=== PATIENT | female | born 1990 | race Caucasian/White ===

== ENCOUNTER 2017-08-04 13:22 | Emergency (ER) | payer SELFPAY | END 2017-08-04 15:25 | disposition left against medical advice (07) | LOC: M ED 13:22 | DX: R10.9 Unspecified abdominal pain (principal); Z53.21 Procedure and treatment not carried out due to patient leaving prior to being seen by health care provider ==

== ENCOUNTER 2018-03-18 18:02 | Emergency (ER) | payer OTHER, SELFPAY ==
[~2018-03-18] VITALS: Ht 157.5 cm; Wt 43.2 kg
--- NOTE | 2018-03-18 18:44 | REP ---
Clinical: Trauma. Technique: AP, lateral, bilateral oblique views of the right ankle. Findings: Multipartite fracture of the calcaneus is appreciated. Lateral soft tissue swelling noted. Impression: Multipartite fracture of the calcaneus with overlying lateral swelling. Electronically Signed by Dewey Ballesteros MD 03/18/2018 06:36 P
[2018-03-18] MEDS ORDERED: PERCOCET 5MG/325MG TAB PO ONE (19:00)
[2018-03-18] MEDS ORDERED: NORCOTAB PO (19:17)
[2018-03-18 19:55] VITALS: BP 109/57
== END 2018-03-18 21:38 | disposition home or self-care (01) ==
LOC: M ED 18:02
DX: S92.001A Unspecified fracture of right calcaneus, initial encounter for closed fracture (principal); W17.89XA Other fall from one level to another, initial encounter; Y92.010 Kitchen of single-family (private) house as the place of occurrence of the external cause

== ENCOUNTER → 2018-03-23 | Outpatient (CLI) | payer OTHER ==
[~2018-03-23] MED LIST: NORCOTAB PO
--- NOTE | 2018-03-24 05:46 | REP ---
Clinical: Calcaneus fracture. Technique: Axial noncontrast images of the right foot with coronal and sagittal re-formations. Findings: There is a comminuted multipartite fracture of the calcaneus without evidence for significant displacement or dislocation. Mild overlying post traumatic soft tissue swelling identified. Remainder of the osseous structures of the foot are intact without further acute injury. Impression: Nondisplaced multipartite fracture of the calcaneus. Electronically Signed by Dewey Ballesteros MD 03/24/2018 05:36 A
== END ==
LOC: M RAD 10:55
PROVIDERS: ATTEND Physician Assistant
DX: S92.001A Unspecified fracture of right calcaneus, initial encounter for closed fracture (principal); X58.XXXA Exposure to other specified factors, initial encounter; Y92.9 Unspecified place or not applicable